=== PATIENT | female | born 1965 | race Caucasian/White ===

== ENCOUNTER → 2017-02-12 | Outpatient (CLI) | payer BC ==
--- NOTE | 2017-02-13 22:22 | Diagnostic Imaging Report ---
Bilateral screening mammogram 2D views with tomosynthesis The current study was also evaluated with a Computer Aided Detection (CAD) system. INDICATION: Screening. No current complaints stated on the questionnaire. COMPARISON: 01/01/16. FINDINGS: The breasts are composed of heterogeneously dense parenchyma which may decrease mammographic sensitivity. Allowing for technique and positional differences, no suspicious change is seen. IMPRESSION: Dense breasts with no definite change. ACR BI-RADS Category 2: Benign findings. Result letter will be mailed to the patient. Note: At least 10% of breast cancer is not imaged by mammography. Dictated by: Dictated on workstation # [id number]
== END ==
LOC: RAD 07:22
PROVIDERS: ATTEND Obstetrics & Gynecology
DX: Z12.31 Encounter for screening mammogram for malignant neoplasm of breast (principal)
CPT/HCPCS: 77067

== ENCOUNTER → 2018-02-25 | Outpatient (CLI) | payer BC ==
--- NOTE | 2018-02-25 19:42 | Diagnostic Imaging Report ---
INDICATION: Routine screening. Comparison is made with prior mammogram from 02/12/2017 and 12/05/2014. 2-D and 3-D bilateral screening mammography was performed with CAD. The current study was also evaluated with a Computer Aided Detection (CAD) system. FINDINGS: Both breasts are heterogeneously dense, limiting the sensitivity of mammography. The parenchymal pattern is stable. No mass or malignant-appearing microcalcifications are seen. The axillae are unremarkable. IMPRESSION: No mammographic features suspicious for malignancy are identified. ACR BI-RADS Category 1: Negative. Result letter will be mailed to the patient. Note: At least 10% of breast cancer is not imaged by mammography. Dictated by: Dictated on workstation # [id number]
== END ==
LOC: RAD 07:14
PROVIDERS: ATTEND Obstetrics & Gynecology
DX: Z12.31 Encounter for screening mammogram for malignant neoplasm of breast (principal)
CPT/HCPCS: 77067

== ENCOUNTER → 2019-01-26 | Outpatient (CLI) | payer BC ==
--- NOTE | 2019-01-26 15:59 | Diagnostic Imaging Report ---
INDICATION: Neck pain. COMPARISON: None. FINDINGS: Frontal, lateral, and open-mouth radiographic views of the cervical spine were obtained. Cervical spine is seen down to the C7-T1 level on the lateral view. Evaluation of static alignment shows slight grade I retrolisthesis at the C5-C6 level. There is no evidence of jumped facets. Open-mouth view shows normal C1-C2 alignment. Vertebral body heights are maintained. There is no evidence of acute fracture. There are degenerative changes essentially isolated to the C5-C6 level as well where there is intervertebral disc height narrowing with anterior and posterior osteophyte formations. There is also mild facet arthropathy. Surrounding soft tissue structures are unremarkable. Included portions of the lung apices are clear. IMPRESSION: 1. No acute fracture or dislocation of the cervical spine. 2. Mild degenerative changes at the C5-C6 level. Dictated by: Dictated on workstation # [id number]
--- NOTE | 2019-01-26 16:01 | Diagnostic Imaging Report ---
INDICATION: Neck pain. COMPARISON: None. FINDINGS: Frontal and lateral views of the thoracic spine were obtained. Visualization of the upper thoracic spine is limited on the lateral projection. Alignment and vertebral heights are maintained. There is mild multilevel intervertebral disc height loss. There is no fracture or destructive process. There are no large paraspinal masses. Limited views of the lungs are clear. IMPRESSION: 1. No acute fracture or dislocation of the thoracic spine. Dictated by: Dictated on workstation # [id number]
== END ==
LOC: RAD 15:24
PROVIDERS: ATTEND Family Medicine
DX: M47.22 Other spondylosis with radiculopathy, cervical region (principal)
CPT/HCPCS: 72040; 72072

== ENCOUNTER → 2019-03-01 | Outpatient (CLI) | payer BC ==
--- NOTE | 2019-03-01 08:49 | Diagnostic Imaging Report ---
INDICATION: Routine screening. Comparison is made with prior mammogram from 02/25/2018 and 02/12/2017. 2-D and 3-D bilateral screening mammography was performed with CAD. Scattered fibroglandular densities are identified bilaterally. No mass or malignant appearing microcalcifications are seen. The axillae are unremarkable. IMPRESSION: BI-RADS Category 1 No mammographic features suspicious for malignancy are identified. ACR BI-RADS Category 1: Negative. Result letter will be mailed to the patient. Note: At least 10% of breast cancer is not imaged by mammography. Dictated by: Dictated on workstation # [id number]
== END ==
LOC: RAD 07:38
PROVIDERS: ATTEND Obstetrics & Gynecology
DX: Z12.31 Encounter for screening mammogram for malignant neoplasm of breast (principal)
CPT/HCPCS: 77067

== ENCOUNTER 2019-07-06 05:34 | Outpatient (CLI) | payer BC ==
[~2019-07-06] VITALS: Ht 172.7 cm; Wt 68.6 kg
[2019-07-06] MEDS ORDERED: CETI10TA17 PO (11:04)
== END 2019-07-06 11:05 | disposition home or self-care (01) ==
LOC: PREOP 05:34
PROVIDERS: ATTEND Surgery
DX: Z01.818 Encounter for other preprocedural examination (principal)

== ENCOUNTER 2019-07-13 07:03 | Day surgery (SDC) | payer BC ==
[~2019-07-13] VITALS: Ht 172.7 cm; Wt 68.6 kg
[~2019-07-13 07:03] MED LIST: CETI10TA17 PO
[2019-07-13] MEDS ORDERED: LACTATED RINGERS 1,000 ML IV ONE (07:14)
[2019-07-13] MEDS ORDERED: LACTATED RINGERS 1,000 ML IV STA (07:33)
[2019-07-13 07:35] VITALS: BP 158/96
[2019-07-13] MEDS ORDERED: MIDAZOLAM 2 MG/2 ML (VERSED) VIAL ONE (07:44)
[2019-07-13] MEDS ORDERED: PROPOFOL INJECTION 50 ML IV ONE (07:44)
--- NOTE | 2019-07-13 08:03 | Progress Note-Pre Operative ---
Pre-Operative Progress Note H&P Reviewed The H&P was reviewed, patient examined and no changes noted. Date Seen by Provider: Jul 13, 2019 Time Seen by Provider: 08:02 Date H&P Reviewed: Jul 13, 2019 Time H&P Reviewed: 08:02 Pre-Operative Diagnosis: screening colonoscopy PAO KOLB DO Jul 13, 2019 08:02
[2019-07-13 08:50] VITALS: BP 117/64
--- NOTE | 2019-07-13 08:52 | Progress Note-Post Operative ---
Post-Operative Progess Note Surgeon (s)/Book Coverer (s) Surgeon PAO KOLB DO Book Coverer: NA Pre-Operative Diagnosis screening colonoscopy Post-Operative Diagnosis Normal Colon Procedure & Operative Findings Date of Procedure 07/13/19 Procedure Performed/Findings Colonoscopy Anesthesia Type per [address] Estimated Blood Loss Estimated blood loss (mL): None Specimens/Packing Specimens Removed None PAO KOLB DO Jul 13, 2019 08:52
[2019-07-13 08:55] VITALS: BP_SYST 107; BP_SYST 118; BP_DIAS 62; BP_DIAS 72
--- NOTE | 2019-07-13 08:55 | Discharge Inst-Simple/Standard ---
Discharge Inst-Standard Patient Instructions/Follow Up Plan of Care/Instructions/FU: Follow up with screening colonoscopy in ten years. If there is a family history of colon cancer patient should return in three to five years for colonosopy. If any issues arise before then be seen at that time. Activity as Tolerated: Yes Discharge Diet: Regular Diet PAO KOLB DO Jul 13, 2019 08:55
[2019-07-13 09:20] VITALS: BP 148/93
[2019-07-13 09:23] VITALS: BP 148/93
--- NOTE | 2019-07-13 13:13 | OPERATIVE REPORT ---
DATE OF SERVICE: 07/13/2019 PREOPERATIVE DIAGNOSIS: Screening colonoscopy. POSTOPERATIVE DIAGNOSIS: Normal colon. PROCEDURE: Colonoscopy. SURGEON: Pao Azevedo DO ANESTHESIA: Per ROUSTABOUT HEAD. ESTIMATED BLOOD LOSS: None. COMPLICATIONS: None. INDICATIONS: The patient is a 53-year-old female due for screening colonoscopy. She understands risks and benefits of procedure and wished to proceed with procedure. Consent was signed in the chart. DESCRIPTION OF PROCEDURE: The patient was taken to the endoscopy suite, placed in left lateral recumbent position. Timeout was performed. Digital rectal exam was performed. There were no palpable polyps, masses or ulcerations. Scope was inserted into the rectum and advanced all the way to cecum with minimal difficulty. Prep was adequate. Scope was then slowly retracted back. There were no polyps, masses or ulcerations within the cecum, ascending, transverse, descending and sigmoid colon. Once in the rectum, scope was retroflexed, noting no other pathology. Scope was returned to its normal position, slowly withdrawn until completely removed. The patient tolerated procedure well without any complications. She was taken to recovery room in stable condition. RECOMMENDATIONS: The patient will need repeat colonoscopy in 10 years unless family history of colon cancer, personal history of colon polyps, which would then be 5 years. Job ID: [id number] DocumentID: [id number] Dictated Date: 07/13/2019 08:59:21 Cat Breeder Date: 07/13/2019 13:13:18 Dictated By: PAO AZEVEDO DO
--- NOTE | 2019-07-14 07:59 | Anesthesia-General Post-Op ---
MAC Patient Condition Mental Status/LOC: Same as Preop Cardiovascular: Satisfactory Nausea/Vomiting: Absent Respiratory: Satisfactory Pain: Controlled Complications: Absent Post Op Complications Complications None Follow Up Care/Instructions Patient Instructions None needed. Anesthesiology Discharge Order Discharge Order Patient is doing well, no complaints, stable vital signs, no apparent adverse anesthesia problems. No complications reported per nursing. PHILIP JUSTICE CRNA Jul 14, 2019 07:59
--- OUTSIDE RECORDS SUMMARY | 2019-07-15 07:50 | XMS REPORT | CCD ---
Author Author Rosalba Bartholomew D.O. Organization [facility] Address [address] [place] [address] Phone Care Team Providers Care Vice President Of Customer Service Name Role Phone Iris Bartholomew D.O. PP Unavailable CCM Unavailable Summary Purpose Interface Exchange Insurance Providers Payer name Policy type / Coverage type Covered green party ID Effective Begin Date Effective End Date Blue Cross Blue Shield Blue Cross/Bl ue Shield [id number] 2017 Unknown Family history Brother Diagnosis Age At Onset No Family Disease Entered N/A Father Diagnosis Age At Onset Diabetes mellitus Type 2 Unknown Mother Diagnosis Age At Onset Parkinson's disease Unknown Social History Social History Element Codes Description Effective Dates Marital status Unknown M arried 08/12/2011 Number of children Unknown 2 08/12/2011 Employment Unknown [employer] 08/12/[address]: 874124237 Never smoker 08/12/[address]: 879100 Currently drinks alcohol socially 08/12/2011 Allergies, Adverse Reactions, Alerts Substance Reaction Codes Entered Date Inactivated Date Status * NO KNOWN DRUG ALEXA RGIES Unknown 08/12/2011 No Inactive Date Active * NO KNOWN ENVIRONME NTAL ALLERGIES Unknown 08/12/2011 No Inactive Date Active * NO KNOWN FOOD ALEXA RGIES Unknown 08/12/2011 No Inactive Date Active Past Medical History Illness Codes Condition Status Onset Date Resolved Date Encounter for genera l adult medical examination without abnormal findings ICD-9: V70.9 ICD-10: Z00.00 Active 06/10/2016 Unknown Irritable bowel synd molly with diarrhea ICD-9: 564.1 ICD-10: K58.0 Active 10/22/2017 Unknown Menopausal and femal e climacteric states ICD-9: 627.2 ICD-10: N95.1 Active 01/20/2019 Unknown Other spondylosis wi th myelopathy, cervical region ICD-9: 721.1 ICD-10: M47.12 Active 01/20/2019 Unknown Radiculopathy, thora cic region ICD-9: 724.4 ICD-10: M54.14 Active 01/20/2019 Unknown Encounter for screen ing for lipoid disorders ICD-9: V77.91 ICD-10: Z13.220 Active 11/10/2018 Unknown Abnormal weight gain ICD-9: 783.1 ICD-10: R63.5 Active 10/22/2017 Unknown Irritant contact marcia matitis due to plants, except food ICD-9: 692.6 ICD-10: L24.7 Active 02/12/2017 Unknown Other irritable benito l syndrome ICD-9: 564.1 ICD-10: K58.8 Active 06/10/2016 Unknown ALLERGIC RHINITIS ICD-9: 477.9 Active 10/03/2014 Unknown HYPOTHYROIDISM ICD-9: 244.9 Active 09/16/2014 Unknown ROUTINE MEDICAL EXAM ICD-9: V70.0 Active 09/16/2014 Unknown DERMATITIS NOS ICD-9: 692.9 Active 02/20/2012 Unknown IBS ICD-9: 564.1 Active 08/12/2011 Unknow n Muscle cramp ICD-9: 729.82 Active 08/12/2011 Unknown Patellofemoral disorder ICD-9: 719.96 Active 08/12/2011 Unknown Problems Condition Codes Effectiv e Dates Condition Status Encounter for genera l adult medical examination without abnormal findings ICD-9: V70.9 ICD-10: Z00.00 06/10/2016 Active Irritable bowel synd molly with diarrhea ICD-9: 564.1 ICD-10: K58.0 10/22/2017 Active Menopausal and femal e climacteric states ICD-9: 627.2 ICD-10: N95.1 01/20/2019 Active Other spondylosis wi th myelopathy, cervical region ICD-9: 721.1 ICD-10: M47.12 01/20/2019 Active Radiculopathy, thora cic region ICD-9: 724.4 ICD-10: M54.14 01/20/2019 Active Encounter for screen ing for lipoid disorders ICD-9: V77.91 ICD-10: Z13.220 11/10/2018 Active Abnormal weight gain ICD-9: 783.1 ICD-10: R63.5 10/22/2017 Active Irritant contact marcia matitis due to plants, except food ICD-9: 692.6 ICD-10: L24.7 02/12/2017 Active Other irritable benito l syndrome ICD-9: 564.1 ICD-10: K58.8 06/10/2016 Active ALLERGIC RHINITIS ICD-9: 477.9 10/03/2014 Active HYPOTHYROIDISM ICD-9: 244.9 09/16/2014 Active ROUTINE MEDICAL EXAM ICD-9: V70.0 09/16/2014 Active DERMATITIS NOS ICD-9: 692.9 02/20/2012 Active IBS ICD-9: 564.1 08/12/2011 Active Muscle cramp ICD-9: 729.82 08/12/2011 Active Patellofemoral disorder ICD-9: 719.96 08/12/2011 Active Medications Medication Codes Instruc tions Start Date Stop Date Sta tus Fill Instructions hyoscyamine ER 0.375 mg tablet,extended release,12 hr RxNorm: 7246665 1 Tablet(s) PO TID as needed FOR ABDOMINAL CRAMPING 01/20/2019 03/20/2019 Active Generi c For:*SYMAX-SR 0.375MG 09/04/2017 11:06:30 AM hyoscyamine ER 0.375 mg tablet,extended release,12 hr RxNorm: 3006022 1 Tablet(s) PO TID as needed FOR ABDOMINAL CRAMPING 11/10/2018 01/08/2019 Inactive Gene perez For:*SYMAX-SR 0.375MG 09/04/2017 11:06:30 AM Mucinex D 60 mg-600 mg tablet,extended release RxNorm: 1592411 Tablet(s) PO 04/21/2018 No Stop Date Active hyoscyamine ER 0.375 mg tablet,extended release,12 hr RxNorm: 1601877 1 Tablet(s) PO TID as needed FOR ABDOMINAL CRAMPING 04/20/2018 05/19/2018 Inactive Gene perez For:*SYMAX-SR 0.375MG 09/04/2017 11:06:30 AM hyoscyamine ER 0.375 mg tablet,extended release,12 hr RxNorm: 4055029 TAKE 1 TABLET BY MOUTH THREE TIMES DAILY NEEDED ABDOMINAL CRAMPING--Needs lab and fwup 12/10/2017 01/08/2018 In active Generic For:*SYMAX-SR 0.375MG 09/04/2017 11:06:30 AM hyoscyamine ER 0.375 mg tablet,extended release,12 hr RxNorm: 0417365 TAKE 1 TABLET BY MOUTH THREE TIMES DAILY NEEDED ABDOMINAL CRAMPING--Needs lab and fwup 09/04/2017 10/03/2017 In active Generic For:*SYMAX-SR 0.375MG 11:06:30 AM Mucinex D 60 mg-600 mg tablet,extended release RxNorm: 8596208 oral 03/20/2017 04/20/2018 Inactive triamcinolone aceton brittani 0.1 % topical cream RxNorm: 0221626 1 Application TOP BI D 02/12/2017 No Stop Date Active triamcinolone aceton brittani 0.1 % topical cream RxNorm: 7303901 1 Application TOP BI D 02/12/2017 No Stop Date Active prednisone 20 mg tablet RxNorm: 459604 2 Tablet(s) PO QD 02/12/2017 02/16/2017 Inactive hyoscyamine ER 0.375 mg tablet,extended release,12 hr RxNorm: 2821717 1 Tablet(s) PO TID as needed for abdominal cramping 06/10/2016 09/04/2017 Inactive [Att nRPh: Saving apply/adjudicate RxGRP:SG20 RxBIN:[id number] RxPCN:HT ID#:[id number]] hyoscyamine ER 0.375 mg tablet,extended release,12 hr RxNorm: 4999285 1 Tablet(s) PO TID as needed 04/01/2016 04/30/2016 Inactive [AttnRPh: Saving apply/adju dicate RxGRP:SG20 RxBIN:[id number] RxPCN:HT ID#:[id number]] hyoscyamine ER 0.375 mg tablet,extended release,12 hr RxNorm: 8194597 1 Tablet(s) PO TID as needed (NEEDS APPOINTMENT) 04/01/2016 04/30/2016 Inactive [Att nRPh: Saving apply/adjudicate RxGRP:SG20 RxBIN:[id number] RxPCN:HT ID#:[id number]] Levbid 0.375 mg tabl et,extended release RxNorm: 6772368 1 Tablet(s) PO TID a s needed 10/03/2014 01/30/2015 Inactive [AttnRPh: Saving apply/adjudicate RxGRP: SG20 RxBIN:[id number] RxPCN: ID#:[id number]] Levbid 0.375 mg tabl et,extended release RxNorm: 4061907 1 Tablet(s) PO TID a s needed 03/16/2013 05/14/2013 Inactive levothyroxine 25 mcg tablet RxNorm: 002340 1 Tablet(s) PO QD 02/20/2012 10/02/2014 Inactive betamethasone dhiraj te 0.1 % Ointment RxNorm: 665832 1 Application TOP BID steroid cream. Apply to affected areas twice daily to relieve itch and swelling. 02/20/2012 02/26/2012 In active Cytomel 25 mcg tablet RxNorm: 496545 1 Tablet(s) PO QD 02/20/2012 03/20/2012 Inactive Cytomel 50 mcg Tab RxNorm: 549556 1 Tablet(s) PO QD 10/18/2011 02/19/2012 Inactive Cytomel 25 mcg Tab RxNorm: 989896 1 Tablet(s) PO QAM 08/19/2011 08/18/2011 Inactive Cytomel 25 mcg Tab RxNorm: 556698 1 Tablet(s) PO QAM 08/19/2011 2011 Inactive Multivitamin & Tool And [employer]/Designer al Formula Tab RxNorm: 1 Tablet(s) PO QD No Start Date Active tretinoin 0.05 % top ical cream RxNorm: 354430 TOP as needed No Start Date Active Zyrtec 10 mg tablet RxNorm: 0776847 1 Tablet(s) PO QD No Start Date Active triamcinolone aceton brittani 0.1 % topical cream RxNorm: 4311564 TOP as needed No Start Date Active Mirena 20 mcg/24 hr (5 years) intrauterine device RxNorm: 035948 IU No Start Date Active phentermine 37.5 mg capsule RxNorm: 823159 1 Capsule(s) PO QD No Start Date 10/21/2017 Inactive Levbid 0.375 mg tabl et,extended release RxNorm: 6472375 Tablet(s) PO PRN No Start Date 03/15/2013 Inactive vitamin B complex ta blet RxNorm: 1 Tablet(s) PO QD No Start Date 01/19/2019 Inactive permethrin 5 % Topic al Cream RxNorm: 979810 TOP apply to skin christi face (not face) at bedtime and leave on overnight. Shower off next morning. Repeat in 14 days. No Start Date 10/02/2014 Inactive Tri-Sprintec (28) 0. 18/0.215/0.25 mg-35 mcg(28) Tab RxNorm: 643562 1 Tablet(s) PO QD No Start Date 10/02/2014 Inactive Mucinex D 60 mg-600 mg tablet,extended release RxNorm: 9260877 oral No Start Date 06/09/2016 Inactive Medication Administered No Medication Administered data Immunizations No Immunization data Assessments Condition Codes Effectiv e Dates Other spondylosis with myelopathy, cervical region ICD-10: M47.12 ICD-9: 721.1 01/20/2019 Menopausal and female climacteric states ICD-10: N95.1 ICD-9: 627.2 01/20/2019 Radiculopathy, thoracic region ICD-1 0: M54.14 ICD-9: 724.4 01/20/2019 Irritable bowel syndrome with diarrhea ICD-10: K58.0 ICD-9: 564.1 01/20/2019 Encounter for general adult medical exam ination without abnormal findings ICD-10: Z00.00 ICD-9: V70.9 01/20/2019 Encounter for screening for lipoid disorders ICD-10: Z13.220 ICD-9: V77.91 11/10/2018 Abnormal weight gain ICD-10: R63.5 ICD-9: 783.1 10/22/2017 Other irritable bowel syndrome ICD-1 0: K58.8 ICD-9: 564.1 06/10/2016 ROUTINE MEDICAL EXAM ICD-9: V70.0 10/03/2014 ALLERGIC RHINITIS ICD-9: 477.9 10/03/2014 HYPOTHYROIDISM ICD-9: 244.9 09/16/2014 DERMATITIS NOS ICD-9: 692.9 02/20/2012 Patellofemoral disorder ICD-9: 719.96 08/12/2011 IBS ICD-9: 564.1 012 Muscle cramp ICD-9: 729.82 08/12/2011 Reason For Visit Reason For Visit Effective Dates Notes well woman exam (40-65 years) 01/20/2019 trouble sleeping, hot flashes, blackheads, and sweats Annual Checkup 10/22/2017 Wellness Physical follow up 02/12/2017 Annual Checkup 06/10/2016 Wellness Physical Annual Checkup 10/03/2014 Wellness Physical---last seen in 2011 rash 02/20/2012 follow up 12/26/2011 dis cuss labs ~generic 08/12/2011 Esta blishing Visit Results No Results data Review of Systems System Result Effective Dates Musculoskeletal No muscle weakness 01/20/2019 Musculoskeletal No myalgias 01/20/2019 Musculoskeletal No stiffness 01/20/2019 Musculoskeletal No swelling 01/20/2019 Musculoskeletal neck pain 01/20/2019 Neurologic neck pain Neurologic paresthesia 0 01/20/2019 Dermatologic No rash Dermatologic No scar Genitourinary/Nephrology No dysuria 01/20/2019 Genitourinary/Nephrology No nocturia 01/20/2019 Genitourinary/Nephrology No urinary incontinence 01/20/2019 Gastrointestinal No hemorrhoids 01/20/2019 Gastrointestinal No hepatitis 01/20/2019 Gastrointestinal No abdominal pain 01/20/2019 Gastrointestinal No constipation 01/20/2019 Gastrointestinal No diarrhea 01/20/2019 Gastrointestinal No gastroesophageal reflu x 01/20/2019 Gastrointestinal No melena 01/20/2019 Gastrointestinal No nausea 01/20/2019 Gastrointestinal No vomiting 01/20/2019 Respiratory No asthma Respiratory No cough Respiratory No dyspnea 0 01/20/2019 Respiratory No pleuritic pain 01/20/2019 Respiratory No productive sputum 01/20/2019 Respiratory No wheezing 01/20/2019 Cardiovascular No arrhythmia 01/20/2019 Cardiovascular No chest pain/pressure 01/20/2019 Cardiovascular No edema 01/20/2019 Cardiovascular No exercise intolerance 01/20/2019 Cardiovascular No orthopnea 01/20/2019 Cardiovascular No palpitations 01/20/2019 Ears/Nose/Throat/Neck No hearing loss 01/20/2019 Ears/Nose/Throat/Neck No nasal discharge 01/20/2019 Ears/Nose/Throat/Neck No sinus congestion 01/20/2019 Ears/Nose/Throat/Neck No sore throat 01/20/2019 Constitutional No night sweats 01/20/2019 Constitutional No fatigue 01/20/2019 Constitutional No fever 01/20/2019 Constitutional No insomnia 01/20/2019 Constitutional No weight loss 01/20/2019 Constitutional diaphoresis 01/20/2019 Psychiatric No anxiety 0 01/20/2019 Psychiatric No depression 01/20/2019 Endocrine No goiter 01/03 Endocrine No hyperglycemia 01/20/2019 Endocrine No hypoglycemia 01/20/2019 Hematologic/Lymphatic No abnormal ec chymoses 01/20/2019 Hematologic/Lymphatic No petechiae 01/20/2019 Hematologic/Lymphatic No abnormal bl eeding and bruising 01/20/2019 Hematologic/Lymphatic No anemia 01/20/2019 Hematologic/Lymphatic No lymph node enlargement/mass 01/20/2019 Endocrine hyperlipidemia 01/20/2019 Constitutional No night sweats 10/22/2017 Constitutional No fatigue 10/22/2017 Constitutional No fever 10/22/2017 Constitutional No insomnia 10/22/2017 Constitutional No weight loss 10/22/2017 Eyes No eye pain 018 Eyes No photophobia 10/04 Eyes No vision change Eyes No visual disturbance 10/22/2017 Ears/Nose/Throat/Neck No hearing loss 10/22/2017 Ears/Nose/Throat/Neck No nasal discharge 10/22/2017 Ears/Nose/Throat/Neck No sinus congestion 10/22/2017 Ears/Nose/Throat/Neck No sore throat 10/22/2017 Cardiovascular No arrhythmia 10/22/2017 Cardiovascular No chest pain/pressure 10/22/2017 Cardiovascular No edema 10/22/2017 Cardiovascular No exercise intolerance 10/22/2017 Cardiovascular No orthopnea 10/22/2017 Cardiovascular No palpitations 10/22/2017 Respiratory No asthma Respiratory No cough Respiratory No dyspnea 0 10/22/2017 Respiratory No pleuritic pain 10/22/2017 Respiratory No productive sputum 10/22/2017 Respiratory No wheezing 10/22/2017 Gastrointestinal No hemorrhoids 10/22/2017 Gastrointestinal No hepatitis 10/22/2017 Gastrointestinal abdominal pain 10/22/2017 Gastrointestinal No constipation 10/22/2017 Gastrointestinal diarrhea 10/22/2017 Gastrointestinal No gastroesophageal reflu x 10/22/2017 Gastrointestinal No melena 10/22/2017 Gastrointestinal No nausea 10/22/2017 Gastrointestinal No vomiting 10/22/2017 Genitourinary/Nephrology No dysuria 10/22/2017 Genitourinary/Nephrology No nocturia 10/22/2017 Genitourinary/Nephrology No urinary incontinence 10/22/2017 Musculoskeletal No muscle weakness 10/22/2017 Musculoskeletal No myalgias 10/22/2017 Musculoskeletal No stiffness 10/22/2017 Musculoskeletal No swelling 10/22/2017 Dermatologic No rash Dermatologic No scar Neurologic No dizziness 10/22/2017 Neurologic No headache 0 10/22/2017 Neurologic No neck pain 10/22/2017 Neurologic No syncope Psychiatric No anxiety 0 10/22/2017 Psychiatric No depression 10/22/2017 Endocrine No goiter 10/04 Endocrine No hyperglycemia 10/22/2017 Endocrine No hypoglycemia 10/22/2017 Hematologic/Lymphatic No abnormal ec chymoses 10/22/2017 Hematologic/Lymphatic No petechiae 10/22/2017 Hematologic/Lymphatic No abnormal bl eeding and bruising 10/22/2017 Hematologic/Lymphatic No anemia 10/22/2017 Hematologic/Lymphatic No lymph node enlargement/mass 10/22/2017 Allergy/Immunology No food allergy 10/22/2017 Constitutional weight gain/obesity 10/22/2017 Genitourinary/Nephrology menstrual i rregularity 10/22/2017 Dermatologic rash 2016 Dermatologic dermatitis - contact 02/12/2017 Eyes eye pain 02/12/2017 Eyes visual disturbance 02/12/2017 Respiratory No dyspnea 1 Ears/Nose/Throat/Neck facial swelling 02/12/2017 Cardiovascular No chest pain/pressure 02/12/2017 Constitutional No fever 02/12/2017 Constitutional No chills 02/12/2017 Constitutional No night sweats 06/10/2016 Constitutional No fatigue 06/10/2016 Constitutional No fever 06/10/2016 Constitutional No insomnia 06/10/2016 Constitutional No weight loss 06/10/2016 Eyes No eye pain 017 Eyes No photophobia 10/2016 Eyes No vision change Eyes No visual disturbance 06/10/2016 Ears/Nose/Throat/Neck No hearing loss 06/10/2016 Ears/Nose/Throat/Neck No nasal discharge 06/10/2016 Ears/Nose/Throat/Neck No sinus congestion 06/10/2016 Ears/Nose/Throat/Neck No sore throat 06/10/2016 Cardiovascular No arrhythmia 06/10/2016 Cardiovascular No chest pain/pressure 06/10/2016 Cardiovascular No edema 06/10/2016 Cardiovascular No exercise intolerance 06/10/2016 Cardiovascular No orthopnea 06/10/2016 Cardiovascular No palpitations 06/10/2016 Respiratory No asthma Respiratory No cough 10/2016 Respiratory No dyspnea 0 06/10/2016 Respiratory No pleuritic pain 06/10/2016 Respiratory No productive sputum 06/10/2016 Respiratory No wheezing 06/10/2016 Gastrointestinal No hemorrhoids 06/10/2016 Gastrointestinal No hepatitis 06/10/2016 Gastrointestinal abdominal pain 06/10/2016 Gastrointestinal No constipation 06/10/2016 Gastrointestinal No diarrhea 06/10/2016 Gastrointestinal No gastroesophageal reflu x 06/10/2016 Gastrointestinal No melena 06/10/2016 Gastrointestinal No nausea 06/10/2016 Gastrointestinal No vomiting 06/10/2016 Genitourinary/Nephrology No dysuria 06/10/2016 Genitourinary/Nephrology No nocturia 06/10/2016 Genitourinary/Nephrology No urinary incontinence 06/10/2016 Musculoskeletal No muscle weakness 06/10/2016 Musculoskeletal No myalgias 06/10/2016 Musculoskeletal No stiffness 06/10/2016 Musculoskeletal No swelling 06/10/2016 Dermatologic No rash 10/2016 Dermatologic No scar 10/2016 Neurologic No dizziness 06/10/2016 Neurologic No headache 0 06/10/2016 Neurologic No neck pain 06/10/2016 Neurologic No syncope Psychiatric No anxiety 0 06/10/2016 Psychiatric No depression 06/10/2016 Endocrine No goiter 10/2016 Endocrine No hyperglycemia 06/10/2016 Endocrine No hypoglycemia 06/10/2016 Hematologic/Lymphatic No abnormal ec chymoses 06/10/2016 Hematologic/Lymphatic No petechiae 06/10/2016 Hematologic/Lymphatic No abnormal bl eeding and bruising 06/10/2016 Hematologic/Lymphatic No anemia 06/10/2016 Hematologic/Lymphatic No lymph node enlargement/mass 06/10/2016 Allergy/Immunology No food allergy 06/10/2016 Constitutional No night sweats 10/03/2014 Constitutional No fatigue 10/03/2014 Constitutional No fever 10/03/2014 Constitutional No insomnia 10/03/2014 Constitutional No weight loss 10/03/2014 Eyes No eye pain 015 Eyes No photophobia 05/2014 Eyes No vision change Eyes No visual disturbance 10/03/2014 Ears/Nose/Throat/Neck No hearing loss 10/03/2014 Ears/Nose/Throat/Neck No nasal discharge 10/03/2014 Ears/Nose/Throat/Neck No sinus congestion 10/03/2014 Ears/Nose/Throat/Neck No sore throat 10/03/2014 Cardiovascular No arrhythmia 10/03/2014 Cardiovascular No chest pain/pressure 10/03/2014 Cardiovascular No edema 10/03/2014 Cardiovascular No exercise intolerance 10/03/2014 Cardiovascular No orthopnea 10/03/2014 Cardiovascular No palpitations 10/03/2014 Respiratory No asthma Respiratory No cough 05/2014 Respiratory No dyspnea 0 10/03/2014 Respiratory No pleuritic pain 10/03/2014 Respiratory No productive sputum 10/03/2014 Respiratory No wheezing 10/03/2014 Gastrointestinal No hemorrhoids 10/03/2014 Gastrointestinal No hepatitis 10/03/2014 Gastrointestinal No abdominal pain 10/03/2014 Gastrointestinal No constipation 10/03/2014 Gastrointestinal No diarrhea 10/03/2014 Gastrointestinal No gastroesophageal reflu x 10/03/2014 Gastrointestinal No melena 10/03/2014 Gastrointestinal No nausea 10/03/2014 Gastrointestinal No vomiting 10/03/2014 Genitourinary/Nephrology No dysuria 10/03/2014 Genitourinary/Nephrology No nocturia 10/03/2014 Genitourinary/Nephrology No urinary incontinence 10/03/2014 Musculoskeletal No muscle weakness 10/03/2014 Musculoskeletal No myalgias 10/03/2014 Musculoskeletal No stiffness 10/03/2014 Musculoskeletal No swelling 10/03/2014 Dermatologic No rash 05/2014 Dermatologic No scar 05/2014 Neurologic No dizziness 10/03/2014 Neurologic No headache 0 10/03/2014 Neurologic No neck pain 10/03/2014 Neurologic No syncope Psychiatric No anxiety 0 10/03/2014 Psychiatric No depression 10/03/2014 Endocrine No goiter 06/0 05/2014 Endocrine No hyperglycemia 10/03/2014 Endocrine No hypoglycemia 10/03/2014 Hematologic/Lymphatic No abnormal ec chymoses 10/03/2014 Hematologic/Lymphatic No petechiae 10/03/2014 Hematologic/Lymphatic No abnormal bl eeding and bruising 10/03/2014 Hematologic/Lymphatic No anemia 10/03/2014 Hematologic/Lymphatic No lymph node enlargement/mass 10/03/2014 Allergy/Immunology No food allergy 10/03/2014 Constitutional No fever 02/20/2012 Ears/Nose/Throat/Neck No nasal discharge 02/20/2012 Ears/Nose/Throat/Neck No otalgia 02/20/2012 Ears/Nose/Throat/Neck No sore throat 02/20/2012 Respiratory No cough Gastrointestinal No abdominal pain 02/20/2012 Gastrointestinal No diarrhea 02/20/2012 Dermatologic rash 2011 Allergy/Immunology No anaphylactoid reaction 02/20/2012 Allergy/Immunology No angioedema 02/20/2012 Allergy/Immunology No food allergy 02/20/2012 Endocrine hypothyroid Constitutional fatigue 0 08/12/2011 Ears/Nose/Throat/Neck No hearing loss 08/12/2011 Cardiovascular No orthopnea 08/12/2011 Cardiovascular No palpitations 08/12/2011 Cardiovascular No chest pain/pressure 08/12/2011 Cardiovascular No edema 08/12/2011 Dermatologic No scar 01/2012 Neurologic No dizziness 08/12/2011 Neurologic No headache 0 08/12/2011 Neurologic No neck pain 08/12/2011 Neurologic No syncope Psychiatric No anxiety 0 08/12/2011 Psychiatric No depression 08/12/2011 Endocrine No goiter 01/2012 Endocrine No hyperglycemia 08/12/2011 Endocrine No hypoglycemia 08/12/2011 Hematologic/Lymphatic No abnormal ec chymoses 08/12/2011 Hematologic/Lymphatic No petechiae 08/12/2011 Hematologic/Lymphatic No abnormal bl eeding and bruising 08/12/2011 Hematologic/Lymphatic No anemia 08/12/2011 Hematologic/Lymphatic No lymph node enlargement/mass 08/12/2011 Eyes No eye pain 012 Eyes No photophobia 01/2012 Eyes No vision change Eyes No visual disturbance 08/12/2011 Allergy/Immunology rhinitis 08/12/2011 Cardiovascular No exercise intolerance 08/12/2011 Respiratory No asthma Respiratory No pleuritic pain 08/12/2011 Respiratory No productive sputum 08/12/2011 Respiratory No cough 01/2012 Respiratory No dyspnea 0 08/12/2011 Respiratory No wheezing 08/12/2011 Gastrointestinal No hemorrhoids 08/12/2011 Gastrointestinal No hepatitis 08/12/2011 Gastrointestinal No abdominal pain 08/12/2011 Gastrointestinal No constipation 08/12/2011 Gastrointestinal No diarrhea 08/12/2011 Gastrointestinal No gastroesophageal reflu x 08/12/2011 Gastrointestinal No melena 08/12/2011 Gastrointestinal No nausea 08/12/2011 Gastrointestinal No vomiting 08/12/2011 Genitourinary/Nephrology No dysuria 08/12/2011 Genitourinary/Nephrology No nocturia 08/12/2011 Genitourinary/Nephrology No urinary incontinence 08/12/2011 Musculoskeletal No muscle weakness 08/12/2011 Musculoskeletal No myalgias 08/12/2011 Musculoskeletal No stiffness 08/12/2011 Musculoskeletal No swelling 08/12/2011 Dermatologic No rash 01/2012 Ears/Nose/Throat/Neck No nasal discharge 08/12/2011 Ears/Nose/Throat/Neck No sinus congestion 08/12/2011 Ears/Nose/Throat/Neck No sore throat 08/12/2011 Cardiovascular No arrhythmia 08/12/2011 Physical Exam Exam Name System Name It em Name Status Result Effective Dates Notes Full Exam - General Constitutional general appearance Overall: well nourished 01/20/2019 None Full Exam - General Constitutional general appearance Overall: in no acute distress 01/20/2019 None Full Exam - General Constitutional general appearance Overall: well developed 01/20/2019 None Full Exam - General Neurologic mental status Overall: alert 9 None Full Exam - General Neurologic mental status Overall: oriented 01/20/2019 None Full Exam - General Psychiatric mood and affect Overall: normal mood and affect 01/20/2019 None Full Exam - General Respiratory auscultation Overall: breath sounds clear bilater ally 01/20/2019 None Full Exam - General Cardiovascular auscultation of heart Overall: regular rate 01/20/2019 None Full Exam - General Neck inspection of neck Overall: normal size 01/20/2019 None Full Exam - General Neck inspection of neck Overall: no masses 01/20/2019 None Full Exam - General Abdomen abdominal exam Overall: no masses 01/20/2019 None Full Exam - General Abdomen abdominal exam Overall: no tenderness 01/20/2019 None Full Exam - General Abdomen abdominal exam Overall: normal bowel sounds 01/20/2019 None Full Exam - General Abdomen abdominal exam Overall: soft 01/20/2019 None Full Exam - General Musculoskeletal gait and station Overall: normal gait 01/20/2019 None Full Exam - General Musculoskeletal gait and station Overall: normal station 01/20/2019 None Full Exam - General Constitutional general appearance Overall: well nourished 10/22/2017 None Full Exam - General Constitutional general appearance Overall: well developed 10/22/2017 None Full Exam - General Constitutional general appearance Overall: in no acute distress 10/22/2017 None Full Exam - General Neurologic mental status Overall: alert 8 None Full Exam - General Neurologic mental status Overall: oriented 10/22/2017 None Full Exam - General Psychiatric mood and affect Overall: normal mood and affect 10/22/2017 None Full Exam - General Respiratory auscultation Overall: breath sounds clear bilater ally 10/22/2017 None Full Exam - General Cardiovascular auscultation of heart Overall: regular rate 10/22/2017 None Full Exam - General Cardiovascular auscultation of heart Overall: normal heart sounds 10/22/2017 None Full Exam - General Cardiovascular auscultation of heart Overall: no murmurs 10/22/2017 None Full Exam - General Cardiovascular extremities Overall: no clubbing 10/22/2017 None Full Exam - General Cardiovascular extremities Overall: No edema 10/22/2017 None Full Exam - General Cardiovascular extremities Overall: No cyanosis 10/22/2017 None Full Exam - General Neck inspection of neck Overall: normal size 10/22/2017 None Full Exam - General Neck inspection of neck Overall: no masses 10/22/2017 None Full Exam - General Ears/Nose/Throat otoscopic exam Overall: external auditory canals clear 10/22/2017 None Full Exam - General Ears/Nose/Throat otoscopic exam Overall: tympanic membranes clear 10/22/2017 None Full Exam - General Ears/Nose/Throat internal nose Overall: bilateral nasal cavities clear 10/22/2017 None Full Exam - General Ears/Nose/Throat oral cavity/pharynx/larynx Overall: oral mucosa clear 10/22/2017 None Full Exam - General Abdomen abdominal exam Overall: no tenderness 10/22/2017 None Full Exam - General Abdomen abdominal exam Overall: no masses 10/22/2017 None Full Exam - General Abdomen abdominal exam Overall: normal bowel sounds 10/22/2017 None Full Exam - General Abdomen abdominal exam Overall: soft 10/22/2017 None Full Exam - General Musculoskeletal spine, ribs and pelvis Spine: deformity 10/22/2017 left elevated shoulder Full Exam - General Respiratory respiratory effort/rhythm Overall: no retractions 02/12/2017 None Full Exam - General Respiratory auscultation Overall: breath sounds clear bilater ally 02/12/2017 None Full Exam - General Cardiovascular auscultation of heart Overall: regular rate 02/12/2017 None Full Exam - General Cardiovascular auscultation of heart Rate: regular rate 02/12/2017 None Full Exam - General Cardiovascular auscultation of heart Rhythm: regular rhythm 02/12/2017 None Full Exam - General Abdomen abdominal exam Overall: no tenderness 02/12/2017 None Full Exam - General Eyes conjunctiva/eyelids Right conjunctiva: erythema 02/12/2017 None Full Exam - General Eyes conjunctiva/eyelids Right eyelid: periorbital erythema 02/12/2017 None Full Exam - General Eyes conjunctiva/eyelids Right eyelid: periorbital edema 02/12/2017 None Full Exam - General Eyes pupils and irises Overall: pupils equal, round, reacti ve to light and accomodation 02/12/2017 None Full Exam - General Integument inspection of skin Location right arm 02/12/2017 None Full Exam - General Integument inspection of skin Location left arm 02/12/2017 None Full Exam - General Integument inspection of skin Location face 02/12/2017 None Full Exam - General Integument inspection of skin Dermatitis: erythema 02/12/2017 None Full Exam - General Integument inspection of skin Rash/Lesions: pustule 02/12/2017 multiple pustules/vesicle s noted to bilateral arms with erythema surrounding and linear in appearance. chin, right cheek, and right eye have smaller pustules. Full Exam - General Integument inspection of skin Rash/Lesions: vesicle 02/12/2017 None Full Exam - General Neurologic mental status Overall: alert 7 None Full Exam - General Neurologic mental status Overall: oriented 02/12/2017 None Full Exam - General Constitutional general appearance Overall: well nourished 06/10/2016 None Full Exam - General Constitutional general appearance Overall: well developed 06/10/2016 None Full Exam - General Constitutional general appearance Overall: in no acute distress 06/10/2016 None Full Exam - General Neurologic mental status Overall: alert 7 None Full Exam - General Neurologic mental status Overall: oriented 06/10/2016 None Full Exam - General Psychiatric mood and affect Overall: normal mood and affect 06/10/2016 None Full Exam - General Respiratory auscultation Overall: breath sounds clear bilater ally 06/10/2016 None Full Exam - General Cardiovascular auscultation of heart Overall: regular rate 06/10/2016 None Full Exam - General Cardiovascular auscultation of heart Overall: normal heart sounds 06/10/2016 None Full Exam - General Cardiovascular auscultation of heart Overall: no murmurs 06/10/2016 None Full Exam - General Neck inspection of neck Overall: normal size 06/10/2016 None Full Exam - General Neck inspection of neck Overall: no masses 06/10/2016 None Full Exam - General Ears/Nose/Throat otoscopic exam Overall: external auditory canals clear 06/10/2016 None Full Exam - General Ears/Nose/Throat otoscopic exam Overall: tympanic membranes clear 06/10/2016 None Full Exam - General Ears/Nose/Throat internal nose Overall: bilateral nasal cavities clear 06/10/2016 None Full Exam - General Ears/Nose/Throat oral cavity/pharynx/larynx Overall: oral mucosa clear 06/10/2016 None Full Exam - General Cardiovascular extremities Overall: no clubbing 06/10/2016 None Full Exam - General Cardiovascular extremities Overall: No edema 06/10/2016 None Full Exam - General Cardiovascular extremities Overall: No cyanosis 06/10/2016 None Full Exam - General Abdomen abdominal exam Overall: no masses 06/10/2016 None Full Exam - General Abdomen abdominal exam Overall: no tenderness 06/10/2016 None Full Exam - General Abdomen abdominal exam Overall: normal bowel sounds 06/10/2016 None Full Exam - General Abdomen abdominal exam Overall: soft 06/10/2016 None Full Exam - General Musculoskeletal gait and station Overall: normal station 06/10/2016 None Full Exam - General Musculoskeletal gait and station Overall: normal gait 06/10/2016 None Full Exam - General Constitutional general appearance Overall: well nourished 10/03/2014 None Full Exam - General Constitutional general appearance Overall: well developed 10/03/2014 None Full Exam - General Constitutional general appearance Overall: in no acute distress 10/03/2014 None Full Exam - General Neurologic mental status Overall: alert 5 None Full Exam - General Neurologic mental status Overall: oriented 10/03/2014 None Full Exam - General Psychiatric mood and affect Overall: normal mood and affect 10/03/2014 None Full Exam - General Respiratory auscultation Overall: breath sounds clear bilater ally 10/03/2014 None Full Exam - General Cardiovascular auscultation of heart Overall: regular rate 10/03/2014 None Full Exam - General Cardiovascular auscultation of heart Overall: normal heart sounds 10/03/2014 None Full Exam - General Cardiovascular auscultation of heart Overall: no murmurs 10/03/2014 None Full Exam - General Abdomen abdominal exam Overall: no masses 10/03/2014 None Full Exam - General Abdomen abdominal exam Overall: no tenderness 10/03/2014 None Full Exam - General Abdomen abdominal exam Overall: normal bowel sounds 10/03/2014 None Full Exam - General Abdomen abdominal exam Overall: soft 10/03/2014 None Full Exam - General Ears/Nose/Throat otoscopic exam Overall: external auditory canals clear 10/03/2014 None Full Exam - General Ears/Nose/Throat otoscopic exam Overall: tympanic membranes clear 10/03/2014 None Full Exam - General Ears/Nose/Throat internal nose Overall: bilateral nasal cavities clear 10/03/2014 None Full Exam - General Ears/Nose/Throat oral cavity/pharynx/larynx Overall: oral mucosa clear 10/03/2014 None Full Exam - General Neck inspection of neck Overall: normal size 10/03/2014 None Full Exam - General Neck inspection of neck Overall: no masses 10/03/2014 None Full Exam - General Integument inspection of skin Overall: no rash, lesions 10/03/2014 None Full Exam - General Musculoskeletal gait and station Overall: normal gait 10/03/2014 None Full Exam - General Musculoskeletal gait and station Overall: normal station 10/03/2014 None Full Exam - General Musculoskeletal spine, ribs and pelvis Overall: good posture 10/03/2014 None Full Exam - General Musculoskeletal spine, ribs and pelvis Overall: ribs benign 10/03/2014 None Full Exam - General Musculoskeletal spine, ribs and pelvis Overall: spine benign 10/03/2014 None Full Exam - General Constitutional general appearance Overall: well nourished 02/20/2012 None Full Exam - General Constitutional general appearance Overall: well developed 02/20/2012 None Full Exam - General Constitutional general appearance Overall: in no acute distress 02/20/2012 None Full Exam - General Respiratory auscultation Overall: breath sounds clear bilater ally 02/20/2012 None Full Exam - General Respiratory respiratory effort/rhythm Overall: no retractions 02/20/2012 None Full Exam - General Respiratory respiratory effort/rhythm Overall: normal rate 02/20/2012 None Full Exam - General Cardiovascular auscultation of heart Overall: regular rate 02/20/2012 None Full Exam - General Cardiovascular auscultation of heart Overall: normal heart sounds 02/20/2012 None Full Exam - General Lymphatic neck nodes Overall: anterior cervical chain faby ign 02/20/2012 None Full Exam - General Lymphatic neck nodes Overall: posterior cervical chain be nign 02/20/2012 None Full Exam - General Integument inspection of skin Rash/Lesions: papule 02/20/2012 scattered papules on lower legs and ankl es-have blister like appearance and itchy Full Exam - General Psychiatric orientation/consciousness Overall: oriented to person, place and time 02/20/2012 None Full Exam - General Constitutional general appearance Overall: well nourished 12/26/2011 None Full Exam - General Constitutional general appearance Overall: well developed 12/26/2011 None Full Exam - General Constitutional general appearance Overall: in no acute distress 12/26/2011 None Full Exam - General Neck thyroid Overall: normal size None Full Exam - General Neck thyroid Overall: nontender 12/25 None Full Exam - General Neurologic mental status Overall: alert 2 None Full Exam - General Neurologic mental status Overall: oriented 12/26/2011 None Full Exam - General Psychiatric mood and affect Overall: normal mood and affect 12/26/2011 None Full Exam - General Constitutional general appearance Overall: well nourished 08/12/2011 None Full Exam - General Constitutional general appearance Overall: well developed 08/12/2011 None Full Exam - General Constitutional general appearance Overall: in no acute distress 08/12/2011 None Full Exam - General Neurologic mental status Overall: alert 2 None Full Exam - General Neurologic mental status Overall: oriented 08/12/2011 None Full Exam - General Psychiatric mood and affect Overall: normal mood and affect 08/12/2011 None Full Exam - General Respiratory auscultation Right upper lung field: a normal exa m 08/12/2011 None Full Exam - General Respiratory auscultation Right middle lung field: a normal ex am 08/12/2011 None Full Exam - General Respiratory auscultation Right lower lung field: a normal exa m 08/12/2011 None Full Exam - General Respiratory auscultation Left lower lung field: a normal exam 08/12/2011 None Full Exam - General Respiratory auscultation Overall: breath sounds clear bilater ally 08/12/2011 None Full Exam - General Respiratory auscultation Left upper lung field: a normal exam 08/12/2011 None Full Exam - General Respiratory auscultation Diffuse: a normal exam 08/12/2011 None Full Exam - General Cardiovascular extremities Overall: No edema 08/12/2011 None Full Exam - General Cardiovascular extremities Overall: No cyanosis 08/12/2011 None Full Exam - General Abdomen abdominal exam Overall: no masses 08/12/2011 None Full Exam - General Abdomen abdominal exam Overall: no tenderness 08/12/2011 None Full Exam - General Abdomen abdominal exam Overall: normal bowel sounds 08/12/2011 None Full Exam - General Abdomen abdominal exam Overall: soft 08/12/2011 None Full Exam - General Integument inspection of skin Overall: no rash, lesions 08/12/2011 None Full Exam - General Musculoskeletal right lower extremity Inspection - right knee: a normal exam 08/12/2011 None Full Exam - General Musculoskeletal right lower extremity Palpation - right knee: crepitus 08/12/2011 None Full Exam - General Musculoskeletal left lower extremity Inspection - left knee: a normal exam 08/12/2011 None Full Exam - General Musculoskeletal left lower extremity Palpation - left knee: crepitus 08/12/2011 None Full Exam - General Musculoskeletal gait and station Overall: normal gait 08/12/2011 None Full Exam - General Musculoskeletal gait and station Overall: normal station 08/12/2011 None Full Exam - General Cardiovascular auscultation of heart Overall: no murmurs 08/12/2011 None Full Exam - General Cardiovascular auscultation of heart Overall: regular rate 08/12/2011 None Full Exam - General Cardiovascular auscultation of heart Overall: normal heart sounds 08/12/2011 None Full Exam - General Cardiovascular auscultation of heart S1: a normal exam 08/12/2011 None Full Exam - General Cardiovascular auscultation of heart S2: a normal exam 08/12/2011 None Full Exam - General Cardiovascular auscultation of heart Rhythm: regular rhythm 08/12/2011 None Full Exam - General Cardiovascular auscultation of heart Rate: regular rate 08/12/2011 None Full Exam - General Cardiovascular auscultation of heart S3 (ventricular gallop): present 08/12/2011 None Full Exam - General Neck inspection of neck Overall: normal size 08/12/2011 None Full Exam - General Neck inspection of neck Overall: no masses 08/12/2011 None Full Exam - General Ears/Nose/Throat otoscopic exam Overall: external auditory canals clear 08/12/2011 None Full Exam - General Ears/Nose/Throat otoscopic exam Overall: tympanic membranes clear 08/12/2011 None Full Exam - General Ears/Nose/Throat internal nose Overall: bilateral nasal cavities clear 08/12/2011 None Full Exam - General Ears/Nose/Throat oral cavity/pharynx/larynx Overall: oral mucosa clear 08/12/2011 None Full Exam - General Cardiovascular extremities Overall: no clubbing 08/12/2011 None Procedures Procedure Codes Date DEXAMETHASONE SODIUM PHOS CPT-4: J1100 02/12/2017 THER/PROPH/DIAG INJ SC/IM CPT-4: 89105 02/12/2017 Vital Signs Date Vital 01/20/2019 Blood Pressure 1: 126/78 Code: 8480-6 Heart Rate 1: 90 bpm SpO2: 99% Temperature: 36.2 (C ) / 97.2 (F) Weight: 143 lbs 10/22/2017 Blood Pressure 1: 138/84 Code: 8480-6 BMI: 21.4 Code: 88668-9 Heart Rate 1: 72 bpm Height: 5'8" Respiratory Rate: 20 bpm SpO2: 97% Temperature: 37.1 (C ) / 98.8 (F) Weight: 143 lbs 02/12/2017 Blood Pressure 1: 120/78 Code: 8480-6 BMI: 22.2 Code: 25909-8 Heart Rate 1: 100 bpm Height: 5'8" Respiratory Rate: 22 bpm SpO2: 98% Temperature: 35.9 (C ) / 96.7 (F) Weight: 148 lbs 06/10/2016 Blood Pressure 1: 128/78 Code: 8480-6 BMI: 20.5 Code: 32636-8 Heart Rate 1: 88 bpm Height: 5'8" Respiratory Rate: 20 bpm Temperature: 36.9 (C ) / 98.4 (F) Weight: 137 lbs 10/03/2014 Blood Pressure 1: 136/78 Code: 8480-6 BMI: 20.8 Code: 07686-4 Heart Rate 1: 80 bpm Height: 5'8" Respiratory Rate: 20 bpm Temperature: 36.8 (C ) / 98.2 (F) Weight: 139 lbs 02/20/2012 Blood Pressure 1: 102/70 Code: 8480-6 BMI: 19.6 Code: 32355-8 Heart Rate 1: 64 bpm Height: 5'8" Temperature: 36.7 (C ) / 98.0 (F) Weight: 131 lbs 12/26/2011 Blood Pressure 1: 138/82 Code: 8480-6 BMI: 19.8 Code: 13206-7 Heart Rate 1: 80 bpm Height: 5'8" Respiratory Rate: 20 bpm Temperature: 37.1 (C ) / 98.8 (F) Weight: 132 lbs 08/12/2011 Blood Pressure 1: 142/88 Code: 8480-6 BMI: 19.6 Code: 93647-4 Heart Rate 1: 84 bpm Height: 5'8" Respiratory Rate: 20 bpm Temperature: 37.2 (C ) / 98.9 (F) Weight: 131 lbs Functional Status No Functional Status data History of Present Illness Symptom Name Status Resu lt Effective Date Notes Menstrual History clarence pause at age 52 01/20/2019 None 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 menopausal symptoms 01/20/2019 None Lifestyle no history o f physical abuse 01/20/2019 None Lifestyle no history o f sexual abuse 01/20/2019 None Lifestyle no history o f verbal abuse 01/20/2019 None Lifestyle regular seat belt use 01/20/2019 None Lifestyle family suppo rtive of relationship 01/20/2019 None Lifestyle satisfactory work experience 01/20/2019 None Lifestyle normal sleep patterns 01/20/2019 None Lifestyle satisfactory marriage/partner relationship 01/20/2019 None Sexual Activity is mon ogamous 01/20/2019 None Sexual Activity is sex ually active 01/20/2019 None Health Guidance self-b reast exam 01/20/2019 None Health Guidance baseli ne mammogram 01/20/2019 None Health Guidance HIV pr ecautions 01/20/2019 None Health Guidance STD pr ecautions 01/20/2019 None Health Guidance tobacc o, drugs and alcohol avoidance 01/20/2019 None Nutrition and Exercise normal weight 01/20/2019 None Nutrition and Exercise balanced nutrition 01/20/2019 None Nutrition and Exercise minimal exercise 01/20/2019 None Quality numbness 01/20/2019 None Annual Checkup Pap Smear last normal performed on 10/22/2017 None Annual Checkup Control IUD 10/22/2017 Currently has mirena in p lace rash Quality acute 02/12/2017 None rash Quality burning 02/12/2017 None rash Quality erythematous 02/12/2017 None rash Location-Head/Neck on both ears 02/12/2017 None eye erythema Location on the right eye 02/12/2017 None eye erythema Quality acu te 02/12/2017 None eye erythema Quality int ermittent 02/12/2017 None eye erythema Quality wor sening 02/12/2017 None eye erythema Onset and Resolution ongoing 02/12/2017 None eye erythema Onset of Symptom 3-4 days ago 02/12/2017 None eyelid erythema Location on the right eyelid 02/12/2017 None eyelid erythema Quality acute 02/12/2017 None eyelid erythema Quality worsening 02/12/2017 None eyelid erythema Onset and Resolution ongoing 02/12/2017 None Annual Checkup Control IUD 06/10/2016 mirena--will be 3 years i n December Annual Checkup Menstrual History irregular menses 06/10/2016 breakthrough but very sporadic Annual Checkup Pap Smear normal results 06/10/[address] Luis--November or December and had Mammogram done Annual Checkup Lifestyle no history of physical abuse 06/10/2016 None Annual Checkup Nutrition and Exercise moderate exercise 06/10/2016 goes to [facility] [place] 3 days a week Annual Checkup Nutrition and Exercise normal weight 06/10/2016 None Annual Checkup Nutrition and Exercise balanced nutrition 06/10/2016 None Annual Checkup Reproductive System D evelopment normal development 06/10/2016 None Annual Checkup Sexual Activity is monogamous 06/10/2016 None Annual Checkup Sexual Activity is sexually active 06/10/2016 None Annual Checkup Lifestyle normal amount of stress 06/10/2016 None Annual Checkup Lifestyle family supportive of relationship 06/10/2016 None Annual Checkup Health Guidance self-breast exam 06/10/2016 None Annual Checkup Health Guidance tobacco, drugs and alcohol avoidance 06/10/2016 None Annual Checkup Health Guidance regular exercise 06/10/2016 None Annual Checkup Health Guidance safety belt use 06/10/2016 None Annual Checkup Health Guidance helmet use 06/10/2016 None Annual Checkup Health Guidance hearing loss prevention 06/10/2016 None Annual Checkup Health Guidance limiting UV/sun exposure 06/10/2016 None Annual Checkup Health Guidance suicide prevention 06/10/2016 None Annual Checkup Health Guidance depression symptoms 06/10/2016 None Annual Checkup Health Guidance HIV precautions 06/10/2016 None Annual Checkup Health Guidance STD precautions 06/10/2016 None Annual Checkup Control IUD 10/03/2014 None Annual Checkup Sexual Activity is sexually active 10/03/2014 None Annual Checkup Sexual Activity is monogamous 10/03/2014 None Annual Checkup Lifestyle no history of physical abuse 10/03/2014 None Annual Checkup Lifestyle no history of sexual abuse 10/03/2014 None Annual Checkup Lifestyle no history of verbal abuse 10/03/2014 None Annual Checkup Lifestyle regular seatbelt use 10/03/2014 None Annual Checkup Nutrition and Exercise normal weight 10/03/2014 None Annual Checkup Menstrual History light flow 10/03/2014 None Annual Checkup Reproductive System D evelopment normal development 10/03/2014 None Annual Checkup Health Guidance self-breast exam 10/03/2014 None Annual Checkup Health Guidance HIV precautions 10/03/2014 None Annual Checkup Health Guidance STD precautions 10/03/2014 None Annual Checkup Health Guidance prevention 10/03/2014 None Annual Checkup Health Guidance control options 10/03/2014 None Annual Checkup Health Guidance tobacco, drugs and alcohol avoidance 10/03/2014 None Annual Checkup Health Guidance regular exercise 10/03/2014 None Annual Checkup Health Guidance safety belt use 10/03/2014 None Annual Checkup Health Guidance helmet use 10/03/2014 None Annual Checkup Health Guidance hearing loss prevention 10/03/2014 None Annual Checkup Health Guidance limiting UV/sun exposure 10/03/2014 None Annual Checkup Health Guidance suicide prevention 10/03/2014 None Annual Checkup Health Guidance depression symptoms 10/03/2014 None Annual Checkup Pap Smear normal results 10/03/2014 None rash Location-Major on t he legs 02/20/2012 None rash Quality constant 02/20/2012 None rash Color red 02/20/2012 None rash Onset and Resolution sudden in onset 02/20/2012 None rash Onset of Symptom 1 month ago 02/20/2012 None hypothyroid Onset and Resolution ongoing 12/26/2011 None abdominal pain Quality i ntermittent 08/12/2011 from IBS joint complaint Location on both knees 08/12/2011 None joint complaint Quality intermittent 08/12/2011 None hair loss Location on th e scalp 08/12/2011 None myalgias Quality intermi ttent 08/12/2011 cramping in feet and legs nasal allergies Location in both nares 08/12/2011 None nasal allergies Onset and Resolution ongoing 08/12/2011 None Advance Directives No Advance Directive data Encounters Encounter Performer Loca tion Codes Date ([id number]) PREV VISIT E ST AGE 40-64 Diagnosis: Encounter for general adult medical examination without abnormal findings[ICD10: Z00.00] Diagnosis: Irritable bowel syndrome with diarrhea[ICD10: K58.0] Diagnosis: Menopausal and female climacteric states[ICD10: N95.1] Diagnosis: Other spondylosis with myelopathy, cervical region[ICD10: M47.12] Diagnosis: Radiculopathy, thoracic region[ICD10: M54.14] Iris ARREOLA NDER [email or web address] CPT-4: 28474 01/20/2019 ([id number]) PREV VISIT E AGE 40-64 Diagnosis: Encounter for general adult medical examination without abnormal findings[ICD10: Z00.00] Diagnosis: Irritable bowel syndrome with diarrhea[ICD10: K58.0] Diagnosis: Abnormal weight gain[ICD10: R63.5] Iris ARREOLA NDER [email or web address] CPT-4: 27408 10/22/2017 OFFICE/OUTPATIENT SIT EST Samra Cervantesharshil ARREOLAND ER [email or web address] CPT-4: 57809 02/12/2017 ([id number]) PREV VISIT E AGE 40-64 Diagnosis: Encounter for general adult medical examination without abnormal findings[ICD10: Z00.00] Diagnosis: Other irritable bowel syndrome[ICD10: K58.8] Iris ARREOLA NDER [email or web address] CPT-4: 45815 06/10/2016 ([id number]) PREV VISIT E AGE 40-64 Diagnosis: ROUTINE MEDICAL EXAM[ICD9: V70.0] Diagnosis: ALLERGIC RHINITIS[ICD9: 477.9] Iris BARTHOLOMEW DO [employer] CPT-4: 46529 10/03/2014 OFFICE/OUTPATIENT SIT EST Diagnosis: DERMATITIS NOS[ICD9: 692.9] Iris BARTHOLOMEW DO [employer] CPT-4: 76837 02/20/2012 ([id number]) OFFICE/OUTPA TIENT VISIT EST Diagnosis: HYPOTHYROIDISM[ICD9: 244.9] Iris BARTHOLOMEW DO [facility] CPT-4: 06514 12/26/2011 OFFICE/OUTPATIENT SIT NEW Diagnosis: IBS[ICD9: 564.1] Diagnosis: Muscle cramp[ICD9: 729.82] Diagnosis: Patellofemoral disorder[ICD9: 719.96] Diagnosis: ALLERGIC RHINITIS[ICD9: 477.9] Iris BARTHOLOMEW DO [employer] CPT-4: 02589 08/12/2011 Plan of Care Planned Activity Notes C odes Status Date Visit Diagnosis Plan: Encounter for [facility] adult medical examination without abnormal findings Discussion: Mediterranean diet Combinati on of cardio and weight bearing exercise Will go for colonoscopy with Dr. 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 Discussion: Discussed hormone risks vs b enefits ICD-9 : 627.2 ICD-10 : N95.1 01/20/2019 Visit Diagnosis Plan: Other spondylosis with myelopathy, cervical region Discussion: Check Cervical spine x-ray ICD-9 : 721.1 ICD-10 : M47.12 01/20/2019 Visit Diagnosis Plan: Radiculopathy, thoracic region Discussion: Check thoracic spine x-ray ICD-9 : 724.4 ICD-10 : M54.14 01/20/2019 Care Plan: X-RAY EXAM NECK SPINE 4/5VWS LOINC : 27731-8 Pending 01/20/2019 Care Plan: X-RAY EXAM L-S SPINE 2/3 VWS LOINC : 86150-4 Pending 01/20/2019 Visit Diagnosis Plan: Abnormal weight gain Discussion: Discussed that BMI is normal and may be age/perimenopause related ICD-9 : 783.1 ICD-10 : R63.5 10/22/2017 Visit Diagnosis Plan: Encounter for gene ral adult medical examination without abnormal findings Discussion: Update fasting lab Sees FOOD AND NUTRITION SERVICES ASSISTANT in November Needs updated colonoscopy--will look at doing later this year per patient Check on last Tetanus booster Recommend check on if insurance covers Shingrix ICD-9 : V70.9 ICD-10 : Z00.00 10/22/2017 Appointment: Iris Bartholomew WPtel: [facility] [address] Annual Well Visit 10/22/2017 Patient Education: Patient Medication Summary Completed 10/22/2017 Visit Diagnosis Plan: Irritant contact d ermatitis due to plants, except food Discussion: 8 mg dexamethasone given IM to pt. prednisone 40 mg daily x 5 days also prescribed. instructed to call or RTC if no improvement by tomorrow or if worsening symptoms. also educated on taking benadryl at nighttime for symptom relief. ICD-9 : 692.6 ICD-10 : L24.7 02/12/2017 Appointment: Samra Todd [address] [place] [address] Hedy scheduled wrong patient....reminde d her to check birthday every time Scheduled in ERR OR 02/12/2017 Patient Education: Patient Medication Summary Completed 02/12/2017 Visit Diagnosis Plan: Encounter for gene ral adult medical examination without abnormal findings Discussion: Fasting lab screening from March [address] Luis and Pap and Mammogram up-to-date ICD-9 : V70.9 ICD-10 : Z00.00 06/10/2016 Visit Diagnosis Plan: Other irritable bowel syndrome Discussion: Continue levsin prn ICD-9 : 564.1 ICD-10 : K58.8 06/10/2016 Appointment: Iris Bartholomew WPtel: [phone] 2/2 confirmed`sl Annual Well Visit 06/10/2016 Patient Education: Patient Medication Summary Completed 06/10/2016 Visit Plan: Patient sees FOOD AND NUTRITION SERVICES ASSISTANT next m [facility] Lab discussed Levbid refilled to use prn and will plan repeat colonoscopy at age 52 Mucinex-D refilled to use prn Fwup 1 year and prn 10/03/2014 Appointment: Iris Bartholomew WPtel: [address] [place] [address] 09/30 appt confirmed cn Annual Well Visit 10/03/2014 Patient Education: Patient Medication Summary Completed 10/03/2014 Patient Education: [facility] - Saving AutoInj - 18-64 - Dynamic Portal ID Completed 10/03/2014 Patient Education: Patient Medication Summary Completed 09/16/2014 Visit Plan: Benadryl at bedtime. To pical betamethasone and treatment with Elemite. repeat 14 days. Pt. will notify if symptoms worsen or persist. 02/20/2012 Appointment: Joan Schrader WPtel: [address] [place] [address] ACUTE ILLNESS 02/20/2012 Patient Education: Patient Medication Summary Completed 02/20/2012 Visit Plan: Thyroid US Will likley try is low dose T3 and T4 12/26/2011 Appointment: Iris Bartholomew WPtel: [address] [place] [address] US confirmed w pt FOLLOW UP 12/26/2011 Patient Education: Patient Medication Summary Completed 12/26/2011 Visit Plan: Restart fish oil at 3gm daily Start daily probiotic and use levbid prn Bicycling and straight leg raises for knees Daily Vitamin D3 1000u Add CMP, Free T4, T3 to most recent lab 08/12/2011 Appointment: Iris Bartholomew WPtel: [address] [place] [address] [place] NEW PATIENT 08/12/2011 Patient Education: Patient Medication Summary Completed 08/12/2011 Instructions Comment . Benadryl at bedtim e. Topical betamethasone and treatment with Elemite. repeat 14 days. Pt. will notify if symptoms worsen or persist. . Thyroid US Will likley try is low dose T3 and T4 . Restart fish oil a t 3gm daily Start daily probiotic and use levbid prn Bicycling and straight leg raises for knees Daily Vitamin D3 1000u Add CMP, Free T4, T3 to most recent lab . Patient sees FOOD AND NUTRITION SERVICES ASSISTANT n ext month Lab discussed Levbid refilled to use prn and will plan repeat colonoscopy at age 52 Mucinex-D refilled to use prn Fwup 1 year and prn
--- OUTSIDE RECORDS SUMMARY | 2019-07-15 07:51 | XMS REPORT | CCD ---
Author Author Rosalba Bartholomew D.O. Organization IRIS BARTHOLOMEW DO [facility] Address [address] [place] [address] Phone Care Team Providers Care Implant Coordinator Name Role Phone Iris Bartholomew D.O. PP Unavailable CCM Unavailable Summary Purpose Interface Exchange Insurance Providers Payer name Policy type / Coverage type Covered constitution party ID Effective Begin Date Effective End Date Blue Cross Blue Shield Blue Cross/Bl ue Shield [id number] 2017 Unknown Family history Brother Diagnosis Age At Onset No Family Disease Entered N/A Father Diagnosis Age At Onset Diabetes mellitus Type 2 Unknown Mother Diagnosis Age At Onset Parkinson's disease Unknown Social History Social History Element Codes Description Effective Dates Marital status Unknown M arried 08/12/2011 Number of children Unknown 2 08/12/2011 Employment Unknown [employer] 08/12/[address]: 568049968 Never smoker 08/12/[address]: 976188 Currently drinks alcohol socially 08/12/2011 Allergies, Adverse [...] ICD-9: V70.9 ICD-10: Z00.00 Active 06/10/2016 Unknown Encounter for screen ing for lipoid disorders ICD-9: V77.91 ICD-10: Z13.220 Active 11/10/2018 Unknown Abnormal weight gain ICD-9: 783.1 ICD-10: R63.5 Active 10/22/2017 Unknown Irritable bowel synd molly with diarrhea ICD-9: 564.1 ICD-10: K58.0 Active 10/22/2017 Unknown Irritant contact marcia matitis [...] findings ICD-9: V70.9 ICD-10: Z00.00 06/10/2016 Active Encounter for screen ing for lipoid disorders ICD-9: V77.91 ICD-10: Z13.220 11/10/2018 Active Abnormal weight gain ICD-9: 783.1 ICD-10: R63.5 10/22/2017 Active Irritable bowel synd molly with diarrhea ICD-9: 564.1 ICD-10: K58.0 10/22/2017 Active Irritant contact marcia matitis due [...] ER 0.375 mg tablet,extended release,12 hr RxNorm: 5697136 1 Tablet(s) PO TID as needed FOR ABDOMINAL CRAMPING 11/10/2018 01/08/2019 Active Otilia drew For:*SYMAX-SR 0.375MG 09/04/2017 11:06:30 AM Mucinex D 60 mg-600 mg tablet,extended release RxNorm: 8269287 Tablet(s) PO 04/21/2018 No Stop Date Active hyoscyamine ER 0.375 mg tablet,extended release,12 hr RxNorm: 8908626 1 Tablet(s) PO TID as needed FOR ABDOMINAL CRAMPING 04/20/2018 05/19/2018 Inactive Gene perez For:*SYMAX-SR 0.375MG 09/04/2017 11:06:30 AM hyoscyamine ER 0.375 mg tablet,extended release,12 hr RxNorm: 6765921 TAKE 1 TABLET BY MOUTH THREE TIMES DAILY NEEDED ABDOMINAL CRAMPING--Needs lab and fwup 12/10/2017 01/08/2018 In active Generic For:*SYMAX-SR 0.375MG 09/04/2017 11:06:30 AM hyoscyamine ER 0.375 mg tablet,extended release,12 hr RxNorm: 0520966 TAKE 1 TABLET BY MOUTH THREE TIMES DAILY NEEDED ABDOMINAL CRAMPING--Needs lab and fwup 09/04/2017 10/03/2017 In active Generic For:*SYMAX-SR 0.375MG 11:06:30 AM Mucinex D 60 mg-600 mg tablet,extended release RxNorm: 7453325 oral 03/20/2017 04/20/2018 Inactive triamcinolone aceton brittani 0.1 % topical cream RxNorm: 1680292 1 Application TOP BI D 02/12/2017 No Stop Date Active triamcinolone aceton brittani 0.1 % topical cream RxNorm: 5074535 1 Application TOP BI D 02/12/2017 No Stop Date Active prednisone 20 mg tablet RxNorm: 861502 2 Tablet(s) PO QD 02/12/2017 02/16/2017 Inactive hyoscyamine ER 0.375 mg tablet,extended release,12 hr RxNorm: 0665983 1 Tablet(s) PO TID as needed for abdominal cramping 06/10/2016 09/04/2017 Inactive [Att nRPh: Saving apply/adjudicate RxGRP:SG20 RxBIN:[id number] RxPCN: ID#:[id number]] hyoscyamine ER 0.375 mg tablet,extended release,12 hr RxNorm: 4315617 1 Tablet(s) PO TID as needed 04/01/2016 04/30/2016 Inactive [AttnRPh: Saving apply/adju dicate RxGRP:SG20 RxBIN:[id number] RxPCN:HT ID#:[id number]] hyoscyamine ER 0.375 mg tablet,extended release,12 hr RxNorm: 4962957 1 Tablet(s) PO TID as needed (NEEDS APPOINTMENT) 04/01/2016 04/30/2016 Inactive [Att nRPh: Saving apply/adjudicate RxGRP:SG20 RxBIN:[id number] RxPCN:HT ID#:[id number]] Levbid 0.375 mg tabl et,extended release RxNorm: 2472566 1 Tablet(s) PO TID a s needed 10/03/2014 01/30/2015 Inactive [AttnRPh: Saving apply/adjudicate RxGRP: SG20 RxBIN:[id number] RxPCN: ID#:[id number]] Levbid 0.375 mg tabl et,extended release RxNorm: 8239046 1 Tablet(s) PO TID a s needed 03/16/2013 05/14/2013 Inactive levothyroxine 25 mcg tablet RxNorm: 426747 1 Tablet(s) PO QD 02/20/2012 10/02/2014 Inactive betamethasone dhiraj te 0.1 % Ointment RxNorm: 586019 1 Application TOP BID steroid cream. Apply to affected areas twice daily to relieve itch and swelling. 02/20/2012 02/26/2012 In active Cytomel 25 mcg tablet RxNorm: 783437 1 Tablet(s) PO QD 02/20/2012 03/20/2012 Inactive Cytomel 50 mcg Tab RxNorm: 004699 1 Tablet(s) PO QD 10/18/2011 02/19/2012 Inactive Cytomel 25 mcg Tab RxNorm: 222242 1 Tablet(s) PO QAM 08/19/2011 08/18/2011 Inactive Cytomel 25 mcg Tab RxNorm: 567253 1 Tablet(s) PO QAM 08/19/2011 2011 Inactive Multivitamin & Education Intern al Formula Tab RxNorm: 1 Tablet(s) PO QD No Start Date Active vitamin B complex ta blet RxNorm: 1 Tablet(s) PO QD No Start Date Active tretinoin 0.05 % top ical cream RxNorm: 928914 TOP as needed No Start Date Active Zyrtec 10 mg tablet RxNorm: 0683512 1 Tablet(s) PO QD No Start Date Active triamcinolone aceton brittani 0.1 % topical cream RxNorm: 5268333 TOP as needed No Start Date Active Mirena 20 mcg/24 hr (5 years) intrauterine device RxNorm: 895459 IU No Start Date Active phentermine 37.5 mg capsule RxNorm: 780688 1 Capsule(s) PO QD No Start Date 10/21/2017 Inactive Levbid 0.375 mg tabl et,extended release RxNorm: 1768762 Tablet(s) PO PRN No Start Date 03/15/2013 Inactive permethrin 5 % Topic al Cream RxNorm: 590585 TOP apply to skin christi face (not face) at bedtime and leave on overnight. Shower off next morning. Repeat in 14 days. No Start Date 10/02/2014 Inactive Tri-Sprintec (28) 0. 18/0.215/0.25 mg-35 mcg(28) Tab RxNorm: 174789 1 Tablet(s) PO QD No Start Date 10/02/2014 Inactive Mucinex D 60 mg-600 mg tablet,extended release RxNorm: 6131241 oral No Start Date 06/09/2016 Inactive Medication Administered No Medication Administered data Immunizations No Immunization data Assessments Condition Codes Effectiv e Dates Encounter for general adult medical exam ination without abnormal findings ICD-10: Z00.00 ICD-9: V70.9 11/10/2018 Encounter for screening for lipoid disorders ICD-10: Z13.220 ICD-9: V77.91 11/10/2018 Irritable bowel syndrome with diarrhea ICD-10: K58.0 ICD-9: 564.1 10/22/2017 Abnormal weight gain ICD-10: R63.5 ICD-9: 783.1 10/22/2017 Other irritable bowel syndrome ICD-1 0: K58.8 ICD-9: 564.1 06/10/2016 ROUTINE MEDICAL EXAM ICD-9: V70.0 10/03/2014 ALLERGIC RHINITIS ICD-9: 477.9 10/03/2014 HYPOTHYROIDISM ICD-9: 244.9 09/16/2014 DERMATITIS NOS ICD-9: 692.9 02/20/2012 Patellofemoral disorder ICD-9: 719.96 08/12/2011 IBS ICD-9: 564.1 012 Muscle cramp ICD-9: 729.82 08/12/2011 Reason For Visit Reason For Visit Effective Dates Notes Annual Checkup 10/22/2017 Wellness Physical follow up 02/12/2017 Annual Checkup 06/10/2016 Wellness Physical Annual Checkup 10/03/2014 Wellness Physical---last seen in 2011 rash 02/20/2012 follow up 12/26/2011 dis cuss labs ~generic 08/12/2011 Esta blishing Visit Results No Results data Review of Systems System Result Effective Dates Constitutional No night sweats 10/22/2017 Constitutional No [...] Psychiatric No depression 10/03/2014 Endocrine No goiter 05/2014 Endocrine No hyperglycemia 10/03/2014 Endocrine No [...] CPT-4: J1100 02/12/2017 THER/PROPH/DIAG INJ SC/IM CPT-4: 76676 02/12/2017 Vital Signs Date Vital 10/22/2017 Blood Pressure 1: 138/84 Code: 8480-6 BMI: 21.4 Code: 55059-0 Heart Rate 1: 72 bpm Height: 5'8" Respiratory Rate: 20 bpm SpO2: 97% Temperature: 37.1 (C ) / 98.8 (F) Weight: 143 lbs 02/12/2017 Blood Pressure 1: 120/78 Code: 8480-6 BMI: 22.2 Code: 15772-4 Heart Rate 1: 100 bpm Height: 5'8" Respiratory Rate: 22 bpm SpO2: 98% Temperature: 35.9 (C ) / 96.7 (F) Weight: 148 lbs 06/10/2016 Blood Pressure 1: 128/78 Code: 8480-6 BMI: 20.5 Code: 82455-3 Heart Rate 1: 88 bpm Height: 5'8" Respiratory Rate: 20 bpm Temperature: 36.9 (C ) / 98.4 (F) Weight: 137 lbs 10/03/2014 Blood Pressure 1: 136/78 Code: 8480-6 BMI: 20.8 Code: 46234-2 Heart Rate 1: 80 bpm Height: 5'8" Respiratory Rate: 20 bpm Temperature: 36.8 (C ) / 98.2 (F) Weight: 139 lbs 02/20/2012 Blood Pressure 1: 102/70 Code: 8480-6 BMI: 19.6 Code: 94310-6 Heart Rate 1: 64 bpm Height: 5'8" Temperature: 36.7 (C ) / 98.0 (F) Weight: 131 lbs 12/26/2011 Blood Pressure 1: 138/82 Code: 8480-6 BMI: 19.8 Code: 93013-3 Heart Rate 1: 80 bpm Height: 5'8" Respiratory Rate: 20 bpm Temperature: 37.1 (C ) / 98.8 (F) Weight: 132 lbs 08/12/2011 Blood Pressure 1: 142/88 Code: 8480-6 BMI: 19.6 Code: 65342-8 Heart Rate 1: 84 bpm Height: 5'8" Respiratory Rate: 20 bpm Temperature: 37.2 (C ) / 98.9 (F) Weight: 131 lbs Functional Status No Functional Status data History of Present Illness Symptom Name Status Resu lt Effective Date Notes Annual Checkup Pap Smear last normal performed [...] and Exercise moderate exercise 06/10/2016 goes to [facility] days a week Annual Checkup Nutrition [...] Encounters Encounter Performer Loca tion Codes Date ([id number]) PREV VISIT E AGE 40-64 Diagnosis: Encounter for general adult medical examination without abnormal findings[ICD10: Z00.00] Diagnosis: Irritable bowel syndrome with diarrhea[ICD10: K58.0] Diagnosis: Abnormal weight gain[ICD10: R63.5] Iris CEDEÑO [employer] CPT-4: 05198 10/22/2017 OFFICE/OUTPATIENT SIT EST Samra Todd IRIS Bonner ELBASANJU VASQUEZ [employer] CPT-4: 68926 02/12/2017 ([id number]) PREV VISIT E AGE 40-64 Diagnosis: Encounter for general adult medical examination without abnormal findings[ICD10: Z00.00] Diagnosis: Other irritable bowel syndrome[ICD10: K58.8] Iris CEDEÑO [employer] CPT-4: 50652 06/10/2016 ([id number]) PREV VISIT E AGE 40-64 Diagnosis: ROUTINE MEDICAL EXAM[ICD9: V70.0] Diagnosis: ALLERGIC RHINITIS[ICD9: 477.9] Iris MORILLOER [employer] CPT-4: 74122 10/03/2014 OFFICE/OUTPATIENT SIT EST Diagnosis: DERMATITIS NOS[ICD9: 692.9] Iris Bonner ELBANDER [employer] CPT-4: 64504 02/20/2012 ([id number]) OFFICE/OUTPA TIENT VISIT EST Diagnosis: HYPOTHYROIDISM[ICD9: 244.9] Iris BARTHOLOMEW [employer] CPT-4: 70342 12/26/2011 OFFICE/OUTPATIENT SIT NEW Diagnosis: IBS[ICD9: 564.1] Diagnosis: Muscle cramp[ICD9: 729.82] Diagnosis: Patellofemoral disorder[ICD9: 719.96] Diagnosis: ALLERGIC RHINITIS[ICD9: 477.9] Iris BARTHOLOMEW [facility] CPT-4: 58589 08/12/2011 Plan of Care Planned Activity Notes C odes Status Date Care Plan: COMPREHEN METABOLIC PANEL LOINC : 04560-1 Pending 11/10/2018 Care Plan: ASSAY THYROID STIM HORMONE Pending 11/10/2018 Care Plan: LIPID PANEL LOINC : 91017-8 Pending 11/10/2018 Care Plan: ASSAY OF FREE THYROXINE Pending 11/10/2018 Care Plan: COMPLETE CBC W/AUTO DIFF WBC LOINC : 17922-1 Pending 11/10/2018 Visit Diagnosis Plan: Abnormal weight gain Discussion: Discussed that BMI is normal and may be age/perimenopause related ICD-9 : 783.1 ICD-10 : R63.5 10/22/2017 Visit Diagnosis Plan: Encounter for gene ral adult medical examination without abnormal findings Discussion: Update fasting lab Sees VARNISH MELTER HELPER in November Needs updated colonoscopy--will look at doing later this year per patient Check on last Tetanus booster Recommend check on if insurance covers Shingrix ICD-9 : V70.9 ICD-10 : Z00.00 10/22/2017 Appointment: Iris Bartholomew WPtel: [facility] [address] Annual Well Visit 10/22/2017 Patient Education: [...] ICD-10 : L24.7 02/12/2017 Appointment: Samra Todd [address] [place] [address] Heyd scheduled wrong patient....reminde d her to check [...] : K58.8 06/10/2016 Appointment: Iris Bartholomew WPtel: [address] [place], [place] [phone] [place] 2/2 confirmed`sl Annual Well Visit 06/10/2016 Patient Education: Patient Medication Summary Completed 06/10/2016 Visit Plan: Patient sees [facility] MEL[facility] HELPER next m [facility] Lab discussed Levbid refilled to use prn and will plan repeat colonoscopy at age 52 Mucinex-D refilled to use prn Fwup 1 year and prn 10/03/2014 Appointment: Iris Bartholomew WPtel: [address] [place], [place] [phone] 09/30 appt confirmed cn Annual Well Visit 10/03/2014 Patient Education: Patient Medication Summary Completed 10/03/2014 Patient Education: [facility] - Saving AutoInj - 18-64 - Dynamic Portal ID Completed 10/03/2014 Patient Education: Patient Medication Summary Completed 09/16/2014 Visit Plan: Benadryl at bedtime. To pical betamethasone and treatment with Elemite. repeat 14 days. Pt. will notify if symptoms worsen or persist. 02/20/2012 Appointment: Joan Schrader WPtel: [address] [place], [place] [phone] ACUTE ILLNESS 02/20/2012 Patient Education: Patient Medication Summary Completed 02/20/2012 Visit Plan: Thyroid US Will zayley try is low dose T3 and T4 12/26/2011 Appointment: Iris Bartholomew WPtel: [facility] US confirmed w pt FOLLOW UP 12/26/2011 Patient Education: Patient Medication Summary Completed 12/26/2011 Visit Plan: Restart fish oil at 3gm daily Start daily probiotic and use levbid prn Bicycling and straight leg raises for knees Daily Vitamin D3 1000u Add CMP, Free T4, T3 to most recent lab 08/12/2011 Appointment: Iris Bartholomew WPtel: [id number] NEW PATIENT 08/12/2011 Patient Education: Patient Medication Summary Completed 08/12/2011 Instructions Comment . Benadryl at bedtim e. Topical betamethasone and treatment with Elemite. repeat 14 days. Pt. will notify if symptoms worsen or persist. . Thyroid US Will lisa try is low dose T3 and T4 . Restart fish oil a t 3gm daily Start daily probiotic and use levbid prn Bicycling and straight leg raises for knees Daily Vitamin D3 1000u Add CMP, Free T4, T3 to most recent lab . Patient sees VARNISH MELTER HELPER n ext month Lab discussed Levbid refilled to use prn and will plan repeat colonoscopy at age 52 Mucinex-D refilled to use prn Fwup 1 year and prn
== END 2019-07-13 09:24 | disposition home or self-care (01) ==
LOC: ENDO 07:03
PROVIDERS: ATTEND Surgery
DX: Z12.11 Encounter for screening for malignant neoplasm of colon (principal); K58.9 Irritable bowel syndrome, unspecified; J30.9 Allergic rhinitis, unspecified; Z79.899 Other long term (current) drug therapy; Z80.9 Family history of malignant neoplasm, unspecified; Z82.49 Family history of ischemic heart disease and other diseases of the circulatory system
CPT/HCPCS: 84703

== ENCOUNTER → 2020-03-07 | Outpatient (CLI) | payer BC ==
--- NOTE | 2020-03-07 12:29 | Diagnostic Imaging Report ---
INDICATION: Routine screening. Comparison is made with prior mammogram 03/01/2019 and 02/25/2018. 2-D and 3-D bilateral screening mammography was performed with CAD. Scattered fibroglandular densities are identified bilaterally. The parenchymal pattern is stable. No mass or malignant-appearing microcalcifications are seen. Axillae are unremarkable. IMPRESSION: BI-RADS Category 1 No mammographic features suspicious for malignancy are microcalcifications ACR BI-RADS Category 1: Negative. Result letter will be mailed to the patient. Note: At least 10% of breast cancer is not imaged by mammography. Dictated by: Dictated on workstation # [id number]
== END ==
LOC: RAD 07:30
PROVIDERS: ATTEND Obstetrics & Gynecology
DX: Z12.31 Encounter for screening mammogram for malignant neoplasm of breast (principal)
CPT/HCPCS: 77063; 77067

== ENCOUNTER → 2021-03-08 | Outpatient (CLI) | payer BC ==
--- NOTE | 2021-03-08 08:52 | Diagnostic Imaging Report ---
Indication: Routine screening. Comparison is made with prior mammogram from 03/07/2020 and 03/01/2019. 2-D and 3-D bilateral screening mammography was performed with CAD. Both breasts are heterogeneously dense, limiting the sensitivity of mammography. No mass or malignant-appearing microcalcifications are seen. Axillae are unremarkable. IMPRESSION: BI-RADS Category 1 No mammographic features suspicious for malignancy are identified. ACR BI-RADS Category 1: Negative. Result letter will be mailed to the patient. Note: At least 10% of breast cancer is not imaged by mammography. Dictated by: Dictated on workstation # [id number]
== END ==
LOC: RAD 07:45
PROVIDERS: ATTEND Obstetrics & Gynecology
DX: Z12.31 Encounter for screening mammogram for malignant neoplasm of breast (principal)
CPT/HCPCS: 77063; 77067

== ENCOUNTER → 2022-05-14 | Outpatient (CLI) | payer BC ==
--- NOTE | 2022-05-14 14:52 | Diagnostic Imaging Report ---
INDICATION: Routine screening. COMPARISON: 03/08/2021 and 03/07/2020. TECHNIQUE: 2D and 3D bilateral screening mammography was performed with CAD. FINDINGS: Scattered fibroglandular densities are identified bilaterally. The parenchymal pattern is stable. No mass is identified. No malignant-appearing microcalcifications are seen. The axillae are unremarkable. IMPRESSION: No mammographic features suspicious for malignancy are identified. ACR BI-RADS Category 1: Negative. Result letter will be mailed to the patient. Note: At least 10% of breast cancer is not imaged by mammography. Dictated by: Dictated on workstation # [id number]
== END ==
LOC: RAD 07:30
PROVIDERS: ATTEND Obstetrics & Gynecology
DX: Z12.31 Encounter for screening mammogram for malignant neoplasm of breast (principal)
CPT/HCPCS: 77063; 77067